=== PATIENT | female | born 1955 | race African-American/Black ===

== ENCOUNTER 2017-08-03 06:01 | Inpatient (IN) | payer OTHER ==
[~2017-08-03 06:01] MED LIST: PANTOPRAZOLE 40 MG TABLET (FP) PO ONE
[2017-08-03] MEDS ORDERED: CEFAZOLIN 2 GM/D5W 2 GM/50 ML ML IVPB ONE (06:45)
[2017-08-03] MEDS ORDERED: TRANEXAMIC ACID 1000 MG/10 ML VIAL IVPUSH ONE (06:45)
[2017-08-03] MEDS ORDERED: oxyCODONE HCL 10 MG SUSTAINED ACTING TABLET PO ONE (06:45)
[2017-08-03] MEDS ORDERED: CEFAZOLIN 2 GM in DEXTROSE 5%-WATER - 50 ML IVPB ONE (06:45)
[2017-08-03] MEDS ORDERED: VANCOMYCIN 1 GRAM (PRE-DOCKED) 1,000 MG/250 ML BAG IVPB ONE ×2 (06:45→21:00)
[2017-08-03] MEDS ORDERED: GABAPENTIN 300 MG CAPSULE (FP) PO ONE (06:45)
[2017-08-03] MEDS ORDERED: ROPIVICAINE 0.2%/MORPH PF/KETOROLAC - 51ML DISP.SYRINGE IA ONE ×3 (06:45→10:54)
[2017-08-03] MEDS ORDERED: CELECOXIB 200 MG CAPSULE PO ONE (06:45)
[2017-08-03] MEDS ORDERED: PANTOPRAZOLE 40 MG TABLET (FP) ONE (06:57)
[2017-08-03] MEDS ORDERED: oxyCODONE HCL 10 MG SUSTAINED ACTING TABLET ONE (06:58)
[2017-08-03] MEDS ORDERED: GABAPENTIN 300 MG CAPSULE (FP) ONE (06:58)
[2017-08-03] MEDS ORDERED: CELECOXIB 200 MG CAPSULE ONE (06:58)
[2017-08-03] MEDS ORDERED: PROPOFOL 20 ML ONE ×2 (07:41→09:25)
[2017-08-03] MEDS ORDERED: TRANEXAMIC ACID 1000 MG/10 ML VIAL ONE ×2 (07:41→10:17)
[2017-08-03] MEDS ORDERED: DEXAMETHASONE SOD PHOSPHATE/PF 10 MG/ML SDV ONE (07:42)
[2017-08-03] MEDS ORDERED: ROPIVACAINE HCL 0.5% 30ML VIAL ONE (07:43)
[2017-08-03] MEDS ORDERED: MIDAZOLAM HCL 2 MG/2 ML SINGLE DOSE VIAL ONE (07:43)
--- NOTE | 2017-08-03 07:46 | HP ---
Admitting History and Physical - Admission Chief Complaint: left hip osteoarthritis x years History of Present Illness: 62 year old female presents in regard to her left hip. Longstanding history of left hip osteoarthritis. Patient complains of pain, limited ROM, difficulty ambulating and difficult completing ADLs. Patient has failed conservative treatment including PO NSAIDs, activity modification, exercise program and injections. At this point, patient would like to proceed with a left total hip arthroplasty (MAKOplasty). History Source: Patient - Past Medical History Cardiovascular: Yes: HTN. 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) ENT: Yes: Other - Past Surgical History Past Surgical History: Yes: (X2), Joint Replacement (rt TKR 1974, lt elbow replacement 1974, lt TKR 2012) Additional Past Surgical History: See written H&P - Smoking History Smoking history: Never smoked Have you smoked in the past 12 months: No - Alcohol/Substance Use Hx Alcohol Use: No - Social History ADL: Family Assistance History of Recent Travel: No Home Medications - Allergies Allergies/Adverse Reactions: Allergies Allergy/AdvReac Type Severity Reaction Status Date / Time No Known Drug Allergies Allergy Verified 07/27/17 14:00 WALNUTS Allergy Mild Itching Uncoded 07/27/17 14:00 - Home Medications Home Medications: Ambulatory Orders Calcium Carbonate/Vitamin D3 [Calcium 600 + Vit D 400 Tablet] 1 each PO BID 10/03 Cyclosporine [Restasis] 1 each OU BID 07/22/13 Famotidine [Pepcid -] 20 mg PO BID #0 tablet 07/30/13 Magnesium Oxide [Mag-Ox -] 400 mg PO BID #0 tablet 07/30/13 Acetaminophen [Non-Aspirin Pain Relief] 650 mg PO Q4H PRN 07/27/17 Albuterol Sulfate [Proair Respiclick] 90 mcg IH Q4H PRN 07/27/17 Aspirin [ASA -] 81 mg PO DAILY 07/27/17 Carboxymethylcellulose Sodium [Refresh Celluvisc] 1 each OU DAILY 07/27/17 Dextran 70/Hypromellose/Pf [Artificial Tears Drops] 1 each OU TID 07/27/17 Oxycodone HCl/Acetaminophen [Percocet 5-325 mg Tablet] 1 tab PO Q4H PRN Prednisone 2.5 mg PO DAILY 07/27/17 Raloxifene HCl 60 mg PO DAILY 07/27/17 Sulfamethoxazole/Trimethoprim [Sulfamethoxazole-Tmp Ds Tablet] 0.5 each PO Q48H 07/27/17 Sulfasalazine [Sulfazine] 1,000 mg PO BID 07/27/17 Family Disease History - Family Disease History Family Disease History: Other: Father ( 60s?), Mother ( 45 breast ca), Brother ( 42 IVDA) Review of Systems - Review of Systems Musculoskeletal: reports: Decreased ROM (left hip), Joint Pain (left hip) Physical Examination Vital Signs: Vital Signs Temperature 98.1 F 08/03/17 06:51 Pulse Rate 98 H 08/03/17 06:51 Respiratory Rate 18 08/03/17 06:51 Blood Pressure 141/95 08/03/17 06:51 O2 Sat by Pulse Oximetry (%) Constitutional: Yes: Well Nourished, No Distress Eyes: Yes: Conjunctiva Clear HENT: Yes: Atraumatic, Normocephalic Neck: Yes: Supple Cardiovascular: Yes: Regular Rate and Rhythm Respiratory: Yes: Regular Gastrointestinal: Yes: Soft ...Rectal Exam: Yes: Deferred Musculoskeletal: Yes: Joint Stiffness (left hip), Joint Swelling (left hip) Assessment/Plan 62 year old female with a longstanding history of left hip osteoarthritis. Patient admits to pain, limited ROM, difficulty ambulating and difficult completing ADLs. Patient has failed conservative treatment. Pros, cons, risks, benefits and alternatives of a left total hip arthroplasty (MAKOplasty) were discussed and reviewed. Patient understands all treatment options and would like to proceed with a left total hip arthroplasty (MAKOplasty).
[2017-08-03] MEDS ORDERED: VANCOMYCIN 1,000 MG VIAL (RESTRICTED TO ID ONLY) ONE (08:20)
[2017-08-03] MEDS ORDERED: TRANEXAMIC ACID 1000 MG/10 ML VIAL IVPB ONE ×2 (09:11→10:40)
[2017-08-03] MEDS ORDERED: VANCOMYCIN 1,000 MG VIAL (RESTRICTED TO ID ONLY) IVPB ONE ×2 (09:12→10:40)
[2017-08-03] MEDS ORDERED: PATIENT'S OWN MEDICATION (NON-FORMULARY) (Albuterol Sulfate [Proair Respiclick] 90 MCG) IH PRN (11:27)
--- NOTE | 2017-08-03 11:27 | OP ---
Operative Note - Note: Operative Date: 08/03/17 Pre-Operative Diagnosis: left hip OA/RA Operation: L SID MAKOplasty Post-Operative Diagnosis: Same as Pre-op Surgeon: Aron Triplett Pre Fabricator: Desiree Borja Anesthesia: Spinal Estimated Blood Loss (mls): 350
[2017-08-03] MEDS ORDERED: KETOROLAC TROMETHAMINE 30 MG/1 ML VIAL ONE (11:28)
[2017-08-03] MEDS ORDERED: traMADol HCL 50 MG TABLET ONE (11:28)
[2017-08-03] MEDS ORDERED: ACETAMINOPHEN INJECTION 100 ML IVPB ONE (11:28)
[2017-08-03] MEDS ORDERED: ONDANSETRON 4 MG/2 ML VIAL IVPUSH PRN (11:32)
[2017-08-03] MEDS ORDERED: MAG HYDROX/AL HYDROX/SIMETH 30 ML UNIT-DOSE CUP PO PRN (11:32)
[2017-08-03] MEDS ORDERED: MAGNESIUM HYDROX 2400MG/30ML ORAL SUSPENSION 30 ML CUP PO PRN (11:32)
[2017-08-03] MEDS ORDERED: ACETAMINOPHEN 1000 MG/100 ML VIAL (NON FORMULARY) IVPB ONE (11:34)
--- NOTE | 2017-08-03 11:36 | PN ---
Progress Note (short form) - Note Progress Note: Pt will need SNF placement after discharge. Lives with son and daughter but they are at work during the day. She has severe rheumatoid arthritis and has difficulty walking at baseline.
[2017-08-03] MEDS ORDERED: LACTATED RINGERS SOLUTION 1,000 ML IV SCH (11:45)
[2017-08-03] MEDS: KETOROLAC TROMETHAMINE 30 MG/1 ML VIAL IVPUSH SCH ×3 (11:46→23:32)
[2017-08-03] MEDS: traMADol HCL 50 MG TABLET PO SCH ×3 (11:49→23:33)
[2017-08-03] MEDS ORDERED: oxyCODONE HCL 5 MG TABLET PO PRN (12:11)
[2017-08-03] MEDS ORDERED: LABETALOL HCL 5 MG/1 ML (100MG/20 ML VIAL) IVPUSH ONE (13:02)
[2017-08-03] MEDS ORDERED: ALBUTEROL SO4 18 GM HFA INHALER IH PRN (13:44)
[2017-08-03] MEDS ORDERED: PATIENT'S OWN MEDICATION (NON-FORMULARY) (Dextran 70/Hypromellose/Pf [Artificial Tears Dro OU SCH (14:00)
[2017-08-03] MEDS ORDERED: SULFAMETHOXAZOLE/TRIMETHOPRIM 800MG/160MG D.S. TABLET PO SCH (15:00)
[2017-08-03] MEDS: CEFAZOLIN 1 GM/D5W 1 GRAM/50 ML BAG IVPB SCH ×2 (15:50→20:43)
[2017-08-03] MEDS: ACETAMINOPHEN 325 MG TABLET (FP) PO SCH ×2 (17:31→23:33)
[2017-08-03] MEDS: MAGNESIUM OXIDE 400 MG TABLET (FP) PO SCH (20:43)
[2017-08-03] MEDS ORDERED: PT OWN MED DRAWER 7, Y5N ONE (21:23)
[2017-08-03] MEDS: oxyCODONE HCL 5 MG TABLET PO PRN (21:31)
[2017-08-03] MEDS: SENNOSIDES/DOCUSATE COMBO (SENNA PLUS) TABLET (UD) PO SCH (21:34)
[2017-08-03] MEDS: ASCORBIC ACID 500 MG TABLET (FP) PO SCH (21:34)
[2017-08-03] MEDS: FAMOTIDINE 20 MG TABLET PO SCH (21:34)
[2017-08-03] MEDS: CELECOXIB 200 MG CAPSULE PO SCH (21:34)
[2017-08-03] MEDS: GABAPENTIN 300 MG CAPSULE (FP) PO SCH (21:34)
[2017-08-03] MEDS: ARTIFICIAL TEARS (POLYVINYL ALCOHOL 1.4%) OPTH DROPS OU SCH (21:42)
[2017-08-03] MEDS ORDERED: PATIENT'S OWN MEDICATION (NON-FORMULARY) (Cyclosporine [Restasis] 1 EACH) OU SCH (22:00)
[2017-08-04] MEDS: CEFAZOLIN 1 GM/D5W 1 GRAM/50 ML BAG IVPB SCH ×2 (02:17→08:29)
[2017-08-04] MEDS: oxyCODONE HCL 5 MG TABLET PO PRN ×4 (02:50→20:16)
[2017-08-04] MEDS ORDERED: PT OWN MED DRAWER 7, Y5N ONE ×5 (06:12→21:16)
[2017-08-04] MEDS: ACETAMINOPHEN 325 MG TABLET (FP) PO SCH ×4 (06:19→23:15)
[2017-08-04] MEDS: traMADol HCL 50 MG TABLET PO SCH ×4 (06:19→23:16)
[2017-08-04] MEDS: ARTIFICIAL TEARS (POLYVINYL ALCOHOL 1.4%) OPTH DROPS OU SCH ×3 (06:20→21:24)
[2017-08-04] MEDS: KETOROLAC TROMETHAMINE 30 MG/1 ML VIAL IVPUSH SCH (06:20)
[2017-08-04 07:50] LABS: ANION GAP 6 (8-16); CALCIUM 8.3 mg/dl (8.4-10.2); CO2 25 mmol/L (22-28); CREATININE 0.9 mg/dl (0.6-1.3); GLUCOSE,RANDOM 106 mg/dl (74-106)
[2017-08-04 07:55] LABS: MCH 33.4 pg (25.7-33.7); MCHC 33.6 g/dl (32.0-36.0); MEAN CELL VOLUME 99.4 fl (80-96); MEAN PLT VOLUME 8.4 fl (7.5-11.1); PLATELET COUNT 170 K/MM3 (134-434); RDW 13.1 % (11.6-15.6); WHITE BLOOD COUNT 5.3 K/mm3 (4.0-10.8)
[2017-08-04] MEDS: ASPIRIN 325 MG TABLET PO SCH (08:29)
[2017-08-04] MEDS: MAGNESIUM OXIDE 400 MG TABLET (FP) PO SCH ×2 (08:29→20:16)
[2017-08-04] MEDS: MULTIVITAMINS (DAILY MVI) TABLET (FP) PO SCH (09:33)
[2017-08-04] MEDS: FAMOTIDINE 20 MG TABLET PO SCH ×2 (09:33→21:25)
[2017-08-04] MEDS: ASCORBIC ACID 500 MG TABLET (FP) PO SCH ×2 (09:33→21:24)
[2017-08-04] MEDS: predniSONE 5 MG TABLET (UD) PO SCH (09:33)
[2017-08-04] MEDS: SENNOSIDES/DOCUSATE COMBO (SENNA PLUS) TABLET (UD) PO SCH ×2 (09:33→21:24)
[2017-08-04] MEDS: CELECOXIB 200 MG CAPSULE PO SCH ×2 (09:33→21:24)
[2017-08-04] MEDS: GABAPENTIN 300 MG CAPSULE (FP) PO SCH ×2 (09:33→21:24)
[2017-08-04] MEDS ORDERED: PATIENT'S OWN MEDICATION (NON-FORMULARY) (Raloxifene Hcl [Raloxifene Hcl] 60 MG) PO SCH (10:00)
[2017-08-04] MEDS ORDERED: CARBOXYMETHYLCELLULOSE SODIUM OU SCH (10:00)
[2017-08-04] MEDS ORDERED: PANTOPRAZOLE 40 MG TABLET (FP) PO SCH ×2 (10:00)
--- NOTE | 2017-08-05 01:42 | PN ---
Progress Note (short form) - Note Progress Note: Pt seen and examined this evening. Doing very well. Walked 300+ feet. Pain well controlled. AVSS Selected Entries 08/04/17 22:00 Temperature 98.7 F Pulse Rate 88 Respiratory 18 Rate Blood Pressure 108/54 O2 Sat by Pulse 96 Oximetry (%) Oxygen Delivery Room Air Method Laboratory Tests 08/04/17 08/04/17 07:15 07:15 WBC 5.3 Hgb 9.0 L Hct 26.7 L Plt Count 170 Sodium 136 Potassium 3.7 Chloride 105 Carbon Dioxide 25 Anion Gap 6 L BUN 13 D Creatinine 0.9 D Random Glucose 106 Calcium 8.3 L Gen: NAD LLE: c/d/i, NVID A/P 62yo female POD#1 s/p R SID 1. Doing well - plan for d/c to [facility] tomorrow. 2. WBAT LLE 3. Pt has hx of previous knee replacement infection and multiple surgeries. Is on chronic supressive Bactrim. Is also on steroids for RA. 4. Add Cephalexin 500mg PO TID x 3 weeks to protect against wound infection. 5. F/U in office in 14 days for wound check and xrays.
[2017-08-05] MEDS: oxyCODONE HCL 5 MG TABLET PO PRN ×2 (03:42→13:35)
[2017-08-05] MEDS: ACETAMINOPHEN 325 MG TABLET (FP) PO SCH ×2 (06:06→12:04)
[2017-08-05] MEDS: traMADol HCL 50 MG TABLET PO SCH ×2 (06:06→12:04)
[2017-08-05] MEDS: ARTIFICIAL TEARS (POLYVINYL ALCOHOL 1.4%) OPTH DROPS OU SCH (06:07)
[2017-08-05] MEDS: CEPHALEXIN MONOHYDRATE 500 MG CAPSULE (UD) PO SCH ×2 (08:15→13:35)
[2017-08-05] MEDS: MAGNESIUM OXIDE 400 MG TABLET (FP) PO SCH (08:15)
[2017-08-05] MEDS: ASPIRIN 325 MG TABLET PO SCH (08:15)
[2017-08-05 08:31] LABS: MCH 32.6 pg (25.7-33.7); MCHC 32.6 g/dl (32.0-36.0); MEAN CELL VOLUME 99.9 fl (80-96); MEAN PLT VOLUME 8.3 fl (7.5-11.1); PLATELET COUNT 162 K/MM3 (134-434); RDW 13.9 % (11.6-15.6); WHITE BLOOD COUNT 5.2 K/mm3 (4.0-10.8)
[2017-08-05 09:00] LABS: ANION GAP 6 (8-16); CALCIUM 8.4 mg/dl (8.4-10.2); CO2 27 mmol/L (22-28); CREATININE 0.8 mg/dl (0.6-1.3); GLUCOSE,RANDOM 83 mg/dl (74-106)
[2017-08-05] MEDS: predniSONE 5 MG TABLET (UD) PO SCH (09:36)
[2017-08-05] MEDS: GABAPENTIN 300 MG CAPSULE (FP) PO SCH (09:36)
[2017-08-05] MEDS: SENNOSIDES/DOCUSATE COMBO (SENNA PLUS) TABLET (UD) PO SCH (09:37)
[2017-08-05] MEDS: FAMOTIDINE 20 MG TABLET PO SCH (09:37)
[2017-08-05] MEDS: CELECOXIB 200 MG CAPSULE PO SCH (09:37)
[2017-08-05] MEDS: ASCORBIC ACID 500 MG TABLET (FP) PO SCH (09:37)
[2017-08-05] MEDS: MULTIVITAMINS (DAILY MVI) TABLET (FP) PO SCH (09:37)
[2017-08-05] MEDS ORDERED: PT OWN MED DRAWER 7, Y5N ONE (09:42)
[2017-08-05 14:39] VITALS: BP 113/60; PULSE 100; TEMP 98.8
--- NOTE | 2017-08-05 15:43 | PATH ---
Surgical Pathology Report Patient Name: CHELLE COLIN Med. Rec. #: [id number] /Age/Gender: 1955 (Age: 62) / F Account: [id number] Location: [facility] MED-[facility] Taken: 08/03/2017 Received: 08/03/2017 Reported: 08/05/2017 Physicians: Aron Triplett M.D. Specimen(s) Received A: LEFT HIP SYNOVIAL TISSUE B: LEFT HEAD OF FEMUR Clinical History Severe osteoarthritis of left hip Final Diagnosis A. FINAL TISSUE, LEFT HIP, EXCISION: FIBROSYNOVIAL TISSUE, INFLAMED. B. HEAD OF FEMUR, LEFT, TOTAL HIP REPLACEMENT: DEGENERATIVE JOINT DISEASE. Electronically Signed Danyell Sawyer M.D. Gross Description A. Received in formalin labeled "left hip synovial tissue," is a 4.2 x 3.1 x 1.4 cm aggregate of helms fragments of soft tissue, consistent with synovial tissue. Electronic Security Specialist sections are submitted in one cassette. B. Received in formalin, labeled "left head of femur," is a 4.3 x 4.3 x 3.7 cm. femoral head with a 0.6 cm length portion of femoral neck attached. The margin of resection is smooth. There is a 3.3 cm greatest dimension area of eburnation identified. The remaining articular cartilage is helms-yellow and focally lifting away from the underlying trabecular bone. The underlying trabecular bone is yellow and hard. A petroleum products sales representative section is submitted in one cassette, following decalcification. 08/04/201708/04/2017
== END 2017-08-05 13:50 | DRG 470 ==
LOC: FM/S 06:01
PROVIDERS: ADMIT Student in an Organized Health Care Education/Training Program; ATTEND Student in an Organized Health Care Education/Training Program
PROC: 8E0Y0CZ Robotic Assisted Procedure of Lower Extremity, Open Approach (ICD-10-PCS; 2017-08-03)
PROC: 0SRB049 Replacement of Left Hip Joint with Ceramic on Polyethylene Synthetic Substitute, Cemented, Open Approach (ICD-10-PCS; principal; 2017-08-03 08:16)
DX: M16.12 Unilateral primary osteoarthritis, left hip (principal); K21.9 Gastro-esophageal reflux disease without esophagitis; I10 Essential (primary) hypertension; J45.909 Unspecified asthma, uncomplicated; M06.9 Rheumatoid arthritis, unspecified
CPT/HCPCS: 36415; 73523-TC; 80048; 85027; 88304-TC; 88311-TC; 94010; 94760; 97116-GP; 97163-GP